=== PATIENT | female | born 1990 | race Caucasian/White ===

== ENCOUNTER 2024-02-04 17:45 | Emergency (ER) | payer SELFPAY ==
[~2024-02-04] VITALS: Ht 165.1 cm; Wt 148.6 kg
[2024-02-04 17:46] VITALS: BP 156/96; PULSE 115; RESP 16; TEMP 98.6; O2SAT 97
== END 2024-02-05 05:28 | disposition left against medical advice (07) ==
LOC: ER 17:46
DX: F41.9 Anxiety disorder, unspecified (principal)
CPT/HCPCS: 99281